=== PATIENT | male | born 1960 | race American Indian/Alaskan Native ===

== ENCOUNTER 2019-11-22 10:52 | Inpatient (IN) | payer BC ==
[2019-11-22] MEDS ORDERED: SODIUM CHLORIDE 0.9% 1000 ML 1,000 ML IV ONE (11:23)
--- NOTE | 2019-11-22 11:23 | Event Note ---
ED Screening Note ED Screening Note: 59-year-old male with past medical history of hypertension [employer] presents emergency department complaining of shortness of breath, aches, dizziness and chills and mild myalgias with malaise and finding that he had tested positive for COVID on yesterday. No hemoptysis no no no hematemesis. Plan COVID-19 evaluation This initial assessment/diagnostic orders/clinical plan/treatment(s) is/are subject to change based on patients health status, clinical progression and re- assessment by fellow clinical providers in the ED. Further treatment and workup at subsequent clinical providers discretion. Patient/guardian urged not to elope from the ED as their condition may be serious if not clinically assessed and managed. Initial orders include:
--- NOTE | 2019-11-22 12:02 | XRay Report ---
CHEST 2 VIEWS INDICATION / CLINICAL INFORMATION: sob and Covid+. Dyspnea COMPARISON: None available. FINDINGS: SUPPORT DEVICES: None. HEART / MEDIASTINUM: No significant abnormality. LUNGS / PLEURA: Linear airspace densities within the left lower lung are probably related atelectasis . There is some patchy airspace density within the right lower lung suspicious for pneumonia. Signer Name: Rodney Choi MD Signed: 11/22/2019 11:57 AM Workstation Name: [email or web address]
[2019-11-22 12:04] LABS: Basophils % (Auto) 1.1 % (0.0-1.8); Eosinophils % (Auto) 0.2 % (0.0-4.3); Lymphocytes # (Auto) 1.3 K/mm3 (1.2-5.4); Lymphocytes % (Auto) 32.1 % (13.4-35.0); Mean Corpuscular HGB Conc 36 % (32-34); Mean Corpuscular Volume 97 fl (84-94); Monocytes # (Auto) 0.5 K/mm3 (0.0-0.8); Platelet Count 211 K/mm3 (140-440); Red Blood Count 4.59 M/mm3 (3.65-5.03); Red Cell Distribution Width 12.9 % (13.2-15.2)
[2019-11-22 12:13] LABS: Hematocrit 44.5 % (35.5-45.6); Hemoglobin 16.1 gm/dl (11.8-15.2)
[2019-11-22 12:26] LABS: Albumin 4.6 g/dL (3.9-5); C-Reactive Protein 0.6 mg/dL (0.00-1.30); Calcium 9.4 mg/dL (8.4-10.2)
[2019-11-22] MEDS ORDERED: SODIUM CHLORIDE 0.9% 1000 ML IV SOLN IV ONE (12:43)
[2019-11-22] MEDS ORDERED: SODIUM CHLORIDE 0.9% 500 ML 500 ML IV ONE (12:43)
[2019-11-22] MEDS ORDERED: dexAMETHasone 20 MG/5 ML VIAL IV ONE (13:04)
--- NOTE | 2019-11-22 13:10 | Emergency Department Report ---
ED General Adult HPI - General Chief complaint: Fever Stated complaint: (+) COVID/HEART RACING PUI?: Yes Time Seen by Provider: 11/22/19 12:43 Source: patient Mode of arrival: Ambulatory Limitations: No Limitations - History of Present Illness Initial comments: Patient is a 74-rbxc-got-[place] male with past medical history of hypertension who has been ill for approximately a week. Patient had a mild cough which is nonproductive initially with some body aches. Patient now over the last 2 days has had some increased shortness of breath and dizziness and heart palpitations. Patient works for the [employer] and did test positive for COVID-19 yesterday. Patient states that his blood pressure was elevated yesterday. States his main concern is dizziness and shortness of breath with exertion. Patient has had subjective fevers throughout the week as well. - Related Data Allergies Allergy/AdvReac Type Severity Reaction Status Date / Time No Known Allergies Allergy Unverified 11/22/19 11:10 ED Review of Systems ROS: Stated complaint: (+) COVID/HEART RACING Other details as noted in HPI Comment: All other systems reviewed and negative ED Past Medical Hx - Past Medical History Previous Medical History?: Yes Hx Hypertension: Yes - Surgical History Past Surgical History?: Yes Additional Surgical History: right knee surgery - Social History Smoking Status: Never Smoker Substance Use Type: None ED Physical Exam - General Limitations: No Limitations General appearance: alert, in no apparent distress - Head Head exam: Present: atraumatic, normocephalic - Eye Eye exam: Present: normal appearance, PERRL, EOMI - ENT ENT exam: Present: normal orophraynx, mucous membranes moist - Neck Neck exam: Present: normal inspection - Respiratory Respiratory exam: Present: normal lung sounds bilaterally, chest wall tenderness. Absent: respiratory distress, wheezes, rales, rhonchi - Cardiovascular Cardiovascular Exam: Present: normal rhythm, tachycardia, normal heart sounds. Absent: systolic murmur, diastolic murmur, rubs, gallop - GI/Abdominal GI/Abdominal exam: Present: soft, normal bowel sounds. Absent: distended, tenderness, guarding, rebound - Rectal Rectal exam: Present: deferred - Extremities Exam Extremities exam: Present: normal inspection - Back Exam Back exam: Present: normal inspection - Neurological Exam Neurological exam: Present: alert, oriented X3 - Psychiatric Psychiatric exam: Present: normal affect, normal mood - Skin Skin exam: Present: warm, dry, intact, normal color. Absent: rash ED Course Vital Signs 11/22/19 11:19 Temperature 99.2 F Pulse Rate 115 H Respiratory 22 Rate Blood Pressure 143/96 O2 Sat by Pulse 96 Oximetry ED Medical Decision Making - Lab Data Result diagrams: 11/22/19 11:34 11/22/19 11:34 Lab Results 11/22/19 11/22/19 11/22/19 Range/Units 11:34 11:34 11:34 WBC (4.5-11.0) K/mm3 RBC (3.65-5.03) M/mm3 Hgb (11.8-15.2) gm/dl Hct (35.5-45.6) % MCV (84-94) fl MCH (28-32) pg MCHC (32-34) % RDW (13.2-15.2) % Plt Count (140-440) K/mm3 Lymph % (Auto) (13.4-35.0) % [place] % (Auto) (0.0-7.3) % Eos % (Auto) (0.0-4.3) % Baso % (Auto) (0.0-1.8) % Lymph # (1.2-5.4) K/mm3 [place] # (0.0-0.8) K/mm3 Eos # (0.0-0.4) K/mm3 Baso # (0.0-0.1) K/mm3 Seg Neutrophils % (40.0-70.0) % Seg Neutrophils # (1.8-7.7) K/mm3 D-Dimer 146.50 (0-234) ng/mlDDU Sodium 135 L (137-145) mmol/L Potassium 4.2 (3.6-5.0) mmol/L Chloride 94.8 L (98-107) mmol/L Carbon Dioxide 26 (22-30) mmol/L Anion Gap 18 mmol/L BUN 11 (9-20) mg/dL Creatinine 1.5 (0.8-1.5) mg/dL Estimated GFR 58 ml/min BUN/Creatinine Ratio 7 % Glucose 101 H (75-100) mg/dL Calcium 9.4 (8.4-10.2) mg/dL Ferritin 346.9 (13.0-400.0) ng/mL Total Bilirubin 1.20 (0.1-1.2) mg/dL AST 29 (5-40) units/L ALT 35 (7-56) units/L Alkaline Phosphatase 64 (35-129) units/L Lactate Dehydrogenase 220 H (91-180) units/L C-Reactive Protein 0.60 (0.00-1.30) mg/dL Total Protein 8.2 (6.3-8.2) g/dL Albumin 4.6 (3.9-5) g/dL Albumin/Globulin Ratio 1.3 % Procalcitonin (<0.15) ng/mL 11/22/19 11/22/19 Range/Units 11:34 11:34 WBC 4.1 L (4.5-11.0) K/mm3 RBC 4.59 (3.65-5.03) M/mm3 Hgb 16.1 H (11.8-15.2) gm/dl Hct 44.5 (35.5-45.6) % MCV 97 H (84-94) fl MCH 35 H (28-32) pg MCHC 36 H (32-34) % RDW 12.9 L (13.2-15.2) % Plt Count 211 (140-440) K/mm3 Lymph % (Auto) 32.1 (13.4-35.0) % [place] % (Auto) 13.0 H (0.0-7.3) % Eos % (Auto) 0.2 (0.0-4.3) % Baso % (Auto) 1.1 (0.0-1.8) % Lymph # 1.3 (1.2-5.4) K/mm3 [place] # 0.5 (0.0-0.8) K/mm3 Eos # 0.0 (0.0-0.4) K/mm3 Baso # 0.0 (0.0-0.1) K/mm3 Seg Neutrophils % 53.6 (40.0-70.0) % Seg Neutrophils # 2.2 (1.8-7.7) K/mm3 D-Dimer (0-234) ng/mlDDU Sodium (137-145) mmol/L Potassium (3.6-5.0) mmol/L Chloride (98-107) mmol/L Carbon Dioxide (22-30) mmol/L Anion Gap mmol/L BUN (9-20) mg/dL Creatinine (0.8-1.5) mg/dL Estimated GFR ml/min BUN/Creatinine Ratio % Glucose (75-100) mg/dL Calcium (8.4-10.2) mg/dL Ferritin (13.0-400.0) ng/mL Total Bilirubin (0.1-1.2) mg/dL AST (5-40) units/L ALT (7-56) units/L Alkaline Phosphatase (35-129) units/L Lactate Dehydrogenase (91-180) units/L C-Reactive Protein (0.00-1.30) mg/dL Total Protein (6.3-8.2) g/dL Albumin (3.9-5) g/dL Albumin/Globulin Ratio % Procalcitonin < 0.05 (<0.15) ng/mL - EKG Data -: EKG Interpreted by Ms EKG shows normal: sinus rhythm, axis, QRS complexes, ST-T waves Rate: normal - EKG Data Interpretation: normal EKG - Radiology Data [facility] [address] [place] [address] XRay Report Signed Patient: SHARI SOTO MR#: [id number] [birth year] : 1960 Acct:[id number] Age/Sex: 59 / M ADM Date: 11/22/19 Loc: ED Attending Dr: Ordering Physician: ROWENA HENDRICKS Date of Service: 11/22/19 Procedure(s): XR chest routine 2V Accession Number(s): [id number] cc: ROWENA HENDRICKS Fluoro Time In Minutes: CHEST 2 VIEWS INDICATION / CLINICAL INFORMATION: sob and Covid+. Dyspnea COMPARISON: None available. FINDINGS: SUPPORT DEVICES: None. HEART / MEDIASTINUM: No significant abnormality. LUNGS / PLEURA: Linear airspace densities within the left lower lung are probably related atelectasis. There is some patchy airspace density within the right lower lung suspicious for pneumonia. Signer Name: Rodney Choi MD Signed: 11/22/2019 11:57 AM Workstation Name: [email or web address] - Medical Decision Making Patient is a 59-year-old F [place] male who tested positive for COVID-19 yesterday who is presenting with worsening shortness of breath with exertion and dizziness. Patient's O2 sat is within normal limits while at rest. Patient does appear short of breath and will be started on oxygen. Patient is tachycardic and will be started on IV fluids for his dizziness. States he has had decreased appetite secondary to not being able to taste or smell. Patient meets sepsis criteria on arrival and will be started on IV fluids Rocephin and azithromycin. Patient be admitted to the hospitalist service for observation. Critical care attestation.: If time is entered above; I have spent that time in minutes in the direct care of this critically ill patient, excluding procedure time. ED Disposition Clinical Impression: COVID-19 Pneumonia Qualifiers: Pneumonia type: due to unspecified organism Lung location: lower lobe of lung Disposition: OP ADMIT IP TO THIS HOSP Is pt being admited?: Yes Does the pt Need Aspirin: No Condition: Stable Time of Disposition: 13:12
[2019-11-22] MEDS: cefTRIAXone/NS 2 GM/100 ML 2 GM/100 ML BAG IV SCH (14:20)
[2019-11-22] MEDS: AZITHROMYCIN 500 MG in SODIUM CHLORIDE 0.9% 250ML 250 ML IV SCH (14:20)
--- NOTE | 2019-11-22 21:13 | History and Physical Report ---
History of Present Illness Date of examination: 11/22/19 Date of admission: 11/22/19 13:13 Chief complaint: Fever and shortness of breath present for 3 days History of present illness: 59-year-old male with history of hypertension comes in for not feeling well for over a week. Patient has cough and body aches for the last 2 days and also increased shortness of breath and dizziness and palpitations. Patient works for [employer] and had a positive test for Covid Yesterday. Patient is concerned about his shortness of breath and dizziness. Also patient has been having subjective fevers. Exposure to coronavirus present. Past Medical History Previous Medical History?: Yes Hypertension: Yes - Surgical History Past Surgical History?: Yes Additional Surgical History: right knee surgery - Social History Smoking Status: Never Smoker Substance Use Type: None Family history Htn Review of Systems ROS: Constitutional no weight loss or weight gain no fever or chills HEENT no sore throat no post nasal drip no diplopia Neck no neck stiffness no lymph gland enlargement Chest and lungs shortness of breath and cough present for last 2 to 3 days CVS no chest pain no diaphoresis no palpitations GI no nausea no vomiting no diarrhea Genitourinary system no dysuria no flank pain Musculoskeletal system no muscle pains no joint pains [employer] no syncope no seizures Skin no rash no itching Psychiatric no depression no homicidal or suicidal tendencies Hematologic no lymphedema or bruising Endocrine no polydipsia no polyuria no cold intolerance no heat intolerance Medications and Allergies Allergies Allergy/AdvReac Type Severity Reaction Status Date / Time No Known Allergies Allergy Verified 11/22/19 15:51 Home Medications Medication Instructions Recorded Confirmed Last Taken Type Amlodipine-Benazepril 10-40 mg 40 mg PO DAILY 11/22/19 11/22/19 Unknown History Biktarvy 50-200-25 mg (Nf) 50 mg PO DAILY 11/22/19 11/22/19 Unknown History Triamterene 37.5 mg PO DAILY 11/22/19 11/22/19 Unknown History Valacyclovir 500 mg PO DAILY 11/22/19 11/22/19 Unknown History Zinc 50 mg PO DAILY 11/22/19 11/22/19 Unknown History Active Meds: Active Medications Ceftriaxone Sodium (Rocephin/Ns 2 Gm/100 Ml) 2 gm in 100 mls @ 200 mls/hr IV Q24HR [facility]; Protocol Last Admin: 11/22/19 14:20 Dose: 200 mls/hr Documented by: Azithromycin 500 mg/ Sodium (Chloride) 250 mls @ 250 mls/hr IV Q24HR JW; Protocol Last Admin: 11/22/19 14:20 Dose: 250 mls/hr Documented by: Exam - Constitutional Vitals: Temp Pulse Resp BP Pulse Ox 98.1 F 115 H 22 160/103 94 11/22/19 20:35 11/22/19 11:19 11/22/19 11:19 11/22/19 18:30 11/22/19 18:16 General appearance: Present: no acute distress, well-nourished - EENT Eyes: Present: PERRL ENT: hearing intact, clear oral mucosa - Neck Neck: Present: supple, normal ROM - Respiratory Respiratory effort: normal Respiratory: bilateral: CTA, rhonchi (Scattered) - Cardiovascular Heart rate: 78 Rhythm: regular Heart Sounds: Present: S1 & S2. Absent: rub, click - Extremities Extremities: no ischemia, pulses intact, pulses symmetrical, No edema Peripheral Pulses: within normal limits - Abdominal General gastrointestinal: Present: soft, non-tender, non-distended, normal bowel sounds Male genitourinary: Present: normal - Integumentary Integumentary: Present: clear, warm, dry - Musculoskeletal Musculoskeletal: gait normal, strength equal bilaterally - Psychiatric Psychiatric: appropriate mood/affect, intact judgment & insight - Neurologic Neurologic: CNII-XII intact, moves all extremities - Allied Health Allied health notes reviewed: nursing, case management Results - Labs CBC & Chem 7: 11/22/19 11:34 11/22/19 11:34 Labs: Laboratory Last Values WBC 4.1 K/mm3 (4.5-11.0) L 11/22/19 11:34 RBC 4.59 M/mm3 (3.65-5.03) 11/22/19 11:34 Hgb 16.1 gm/dl (11.8-15.2) H 11/22/19 11:34 Hct 44.5 % (35.5-45.6) 11/22/19 11:34 MCV 97 fl (84-94) H 11/22/19 11:34 MCH 35 pg (28-32) H 11/22/19 11:34 MCHC 36 % (32-34) H 11/22/19 11:34 RDW 12.9 % (13.2-15.2) L 11/22/19 11:34 Plt Count 211 K/mm3 (140-440) 11/22/19 11:34 Lymph % (Auto) 32.1 % (13.4-35.0) 11/22/19 11:34 [place] % (Auto) 13.0 % (0.0-7.3) H 11/22/19 11:34 Eos % (Auto) 0.2 % (0.0-4.3) 11/22/19 11:34 Baso % (Auto) 1.1 % (0.0-1.8) 11/22/19 11:34 Lymph # 1.3 K/mm3 (1.2-5.4) 11/22/19 11:34 [place] # 0.5 K/mm3 (0.0-0.8) 11/22/19 11:34 Eos # 0.0 K/mm3 (0.0-0.4) 11/22/19 11:34 Baso # 0.0 K/mm3 (0.0-0.1) 11/22/19 11:34 Seg Neutrophils % 53.6 % (40.0-70.0) 11/22/19 11:34 Seg Neutrophils # 2.2 K/mm3 (1.8-7.7) 11/22/19 11:34 D-Dimer 146.50 ng/mlDDU (0-234) 11/22/19 11:34 Sodium 135 mmol/L (137-145) L 11/22/19 11:34 Potassium 4.2 mmol/L (3.6-5.0) 11/22/19 11:34 Chloride 94.8 mmol/L (98-107) L 11/22/19 11:34 Carbon Dioxide 26 mmol/L (22-30) 11/22/19 11:34 Anion Gap 18 mmol/L 11/22/19 11:34 BUN 11 mg/dL (9-20) 11/22/19 11:34 Creatinine 1.5 mg/dL (0.8-1.5) 11/22/19 11:34 Estimated GFR 58 ml/min 11/22/19 11:34 BUN/Creatinine Ratio 7 % 11/22/19 11:34 Glucose 101 mg/dL (75-100) H 11/22/19 11:34 Lactic Acid 1.30 mmol/L (0.7-2.0) 11/22/19 17:39 Calcium 9.4 mg/dL (8.4-10.2) 11/22/19 11:34 Ferritin 346.9 ng/mL (13.0-400.0) 11/22/19 11:34 Total Bilirubin 1.20 mg/dL (0.1-1.2) 11/22/19 11:34 AST 29 units/L (5-40) 11/22/19 11:34 ALT 35 units/L (7-56) 11/22/19 11:34 Alkaline Phosphatase 64 units/L (35-129) 11/22/19 11:34 Lactate Dehydrogenase 220 units/L (91-180) H 11/22/19 11:34 C-Reactive Protein 0.60 mg/dL (0.00-1.30) 11/22/19 11:34 Total Protein 8.2 g/dL (6.3-8.2) 11/22/19 11:34 Albumin 4.6 g/dL (3.9-5) 11/22/19 11:34 Albumin/Globulin Ratio 1.3 % 11/22/19 11:34 Procalcitonin < 0.05 ng/mL (<0.15) 11/22/19 11:34 Short CBC 11/22/19 Range/Units 11:34 WBC 4.1 L (4.5-11.0) K/mm3 Hgb 16.1 H (11.8-15.2) gm/dl Hct 44.5 (35.5-45.6) % Plt Count 211 (140-440) K/mm3 BMP 11/22/19 11:34 Sodium 135 L Potassium 4.2 Chloride 94.8 L Carbon Dioxide 26 BUN 11 Creatinine 1.5 Glucose 101 H Calcium 9.4 Liver Function 11/22/19 Range/Units 11:34 Total Bilirubin 1.20 (0.1-1.2) mg/dL AST 29 (5-40) units/L ALT 35 (7-56) units/L Alkaline Phosphatase 64 (35-129) units/L Albumin 4.6 (3.9-5) g/dL Microbiology: Microbiology 11/22/19 13:19 Peripheral/Venous Blood Culture - Preliminary Culture in Progress 11/22/19 13:19 Peripheral/Venous Blood Culture - Preliminary Culture in Progress - Imaging and Cardiology Chest x-ray: report reviewed Imaging and Cardiology: CXR LUNGS / PLEURA: Linear airspace densities within the left lower lung are probably related atelectasis. There is some patchy airspace density within the right lower lung suspicious for pneumonia. Assessment and Plan Advance Directives: Yes - Patient Problems (1) Pneumonia Current Visit: Yes Status: Acute Qualifiers: Pneumonia type: due to unspecified organism Laterality: left Lung location: lower lobe of lung Qualified Code(s): J18.9 - Pneumonia, unspecified organism Plan to address problem: Treat as community-acquired pneumonia Patient initiated on IV Zithromax and IV Rocephin ID consult requested Patient isolated (2) COVID-19 Current Visit: Yes Status: Acute Plan to address problem: Covid test ordered again for reconfirmation and official result ID consult requested Code markers are slightly high (3) Hypertension Current Visit: Yes Status: Chronic Qualifiers: Hypertension type: essential hypertension Qualified Code(s): I10 - Essential (primary) hypertension Plan to address problem: Continue antihypertensives (4) Hyponatremia Current Visit: Yes Status: Acute Plan to address problem: Mild Should correct with IV fluids (5) DVT prophylaxis Current Visit: Yes Status: Acute Plan to address problem: On Lovenox and GI prophylaxis
[2019-11-22] MEDS ORDERED: SODIUM CHLORIDE 0.9% 1000 ML 1,000 ML IV SCH (21:15)
[2019-11-22] MEDS ORDERED: ZINC 50 MG PO SCH (21:15)
[2019-11-22] MEDS ORDERED: ONDANSETRON 4 MG/2 ML INJ IV PRN (21:15)
[2019-11-22] MEDS ORDERED: TRIAMTERENE 37.5 MG PO SCH (21:15)
[2019-11-22] MEDS ORDERED: AMLODIPINE BENAZEPRIL PO SCH (21:15)
[2019-11-22] MEDS ORDERED: ACETAMINOPHEN 325 MG TAB PO PRN (21:15)
[2019-11-22] MEDS ORDERED: VALACYCLOVIR 500 MG PO SCH (21:15)
[2019-11-22] MEDS ORDERED: HYDROmorphone 1 MG/1 ML INJ IV PRN (21:16)
[2019-11-22] MEDS ORDERED: oxyCODONE /ACETAMINOPHEN 5-325MG TAB PO PRN (21:16)
[2019-11-22] MEDS ORDERED: METOCLOPRAMIDE 10 MG/2 ML INJ IV PRN (21:26)
[2019-11-22] MEDS ORDERED: IPRATROPIUM/ALBUTEROL SULFATE 3 ML AMPUL.NEB IH PRN (21:38)
[2019-11-22] MEDS ORDERED: ALBUTEROL 2.5 MG/3 ML NEBU IH PRN (22:48)
[2019-11-22] MEDS: ENOXAPARIN 40 MG/0.4 ML INJ SUB-Q SCH (23:15)
[2019-11-22] MEDS: LISINOPRIL 40 MG TAB PO SCH (23:15)
[2019-11-22] MEDS: FAMOTIDINE 20 MG/2 ML INJ IV SCH (23:17)
[2019-11-23] MEDS: amLODIPine 10 MG TAB PO SCH ×2 (00:01→10:06)
[2019-11-23] MEDS: TRIAMTER/HCTZ 37.5-25 MG TAB PO SCH ×2 (00:04→10:04)
[2019-11-23 07:27] LABS: Hematocrit 38.6 % (35.5-45.6); Hemoglobin 13.6 gm/dl (11.8-15.2); Mean Corpuscular HGB Conc 35 % (32-34); Mean Corpuscular Volume 95 fl (84-94); Platelet Count 181 K/mm3 (140-440); Red Blood Count 4.04 M/mm3 (3.65-5.03); Red Cell Distribution Width 12.5 % (13.2-15.2)
[2019-11-23 07:50] LABS: Alanine Aminotransferase 26 units/L (7-56); Albumin 3.9 g/dL (3.9-5); BUN/Creatinine Ratio 13; Blood Urea Nitrogen 14 mg/dL (9-20); Calcium 8.4 mg/dL (8.4-10.2); Hemolysis Index 5
--- NOTE | 2019-11-23 09:13 | Progress Note ---
Assessment and Plan Assessment and plan: Sepsis. Patient meets criteria given the tachycardia, leukopenia and diagnosis of pneumonia. Will continue sepsis pathway. COVID-19 pneumonia. Patient reportedly tested positive prior to admission. I nflammatory markers are not elevated with d-dimer 146, ferritin 346, CRP 0.6 and LDH 220. However, patient with desaturation in the 80s. Check exercise pulse oximetry. ID consultation pending. Acute hypoxic respiratory failure. Etiology secondary to above. Continue O2 and BiPAP as clinically indicated. Leukopenia. Etiology secondary to COVID-19. Follow-up CBC. Hypertension. Continue home antihypertensive medications. History Interval history: No new issues overnight. Hospitalist Physical - Constitutional Vitals: Temp Pulse Resp BP Pulse Ox 98.0 F 88 18 133/89 88 11/22/19 23:14 11/23/19 00:01 11/22/19 23:14 11/23/19 00:01 11/23/19 04:11 General appearance: Present: no acute distress, well-nourished - EENT Eyes: Present: PERRL, EOM intact ENT: hearing intact, clear oral mucosa, dentition normal - Neck Neck: Present: supple, normal ROM - Respiratory Respiratory effort: normal Respiratory: bilateral: CTA - Cardiovascular Rhythm: regular Heart Sounds: Present: S1 & S2. Absent: gallop, rub - Extremities Extremities: no ischemia, No edema, Full ROM - Abdominal General gastrointestinal: soft, non-tender, non-distended, normal bowel sounds - Integumentary Integumentary: Present: clear, warm, dry - Neurologic Neurologic: CNII-XII intact, moves all extremities Results - Labs CBC & Chem 7: 11/23/19 06:12 11/23/19 06:12 Labs: Laboratory Last Values WBC 1.9 K/mm3 (4.5-11.0) L* 11/23/19 06:12 RBC 4.04 M/mm3 (3.65-5.03) 11/23/19 06:12 Hgb 13.6 gm/dl (11.8-15.2) 11/23/19 06:12 Hct 38.6 % (35.5-45.6) 11/23/19 06:12 MCV 95 fl (84-94) H 11/23/19 06:12 MCH 34 pg (28-32) H 11/23/19 06:12 MCHC 35 % (32-34) H 11/23/19 06:12 RDW 12.5 % (13.2-15.2) L 11/23/19 06:12 Plt Count 181 K/mm3 (140-440) 11/23/19 06:12 Lymph % (Auto) 32.1 % (13.4-35.0) 11/22/19 11:34 [place] % (Auto) 13.0 % (0.0-7.3) H 11/22/19 11:34 Eos % (Auto) 0.2 % (0.0-4.3) 11/22/19 11:34 Baso % (Auto) 1.1 % (0.0-1.8) 11/22/19 11:34 Lymph # 1.3 K/mm3 (1.2-5.4) 11/22/19 11:34 [place] # 0.5 K/mm3 (0.0-0.8) 11/22/19 11:34 Eos # 0.0 K/mm3 (0.0-0.4) 11/22/19 11:34 Baso # 0.0 K/mm3 (0.0-0.1) 11/22/19 11:34 Seg Neutrophils % 53.6 % (40.0-70.0) 11/22/19 11:34 Seg Neutrophils # 2.2 K/mm3 (1.8-7.7) 11/22/19 11:34 D-Dimer 146.50 ng/mlDDU (0-234) 11/22/19 11:34 Sodium 139 mmol/L (137-145) 11/23/19 06:12 Potassium 3.9 mmol/L (3.6-5.0) 11/23/19 06:12 Chloride 102.6 mmol/L (98-107) 11/23/19 06:12 Carbon Dioxide 23 mmol/L (22-30) 11/23/19 06:12 Anion Gap 17 mmol/L 11/23/19 06:12 BUN 14 mg/dL (9-20) 11/23/19 06:12 Creatinine 1.1 mg/dL (0.8-1.5) 11/23/19 06:12 Estimated GFR > 60 ml/min 11/23/19 06:12 BUN/Creatinine Ratio 13 % 11/23/19 06:12 Glucose 111 mg/dL (75-100) H 11/23/19 06:12 Hemoglobin A1c 4.7 % (4-6) 11/23/19 06:12 Lactic Acid 1.30 mmol/L (0.7-2.0) 11/22/19 17:39 Calcium 8.4 mg/dL (8.4-10.2) 11/23/19 06:12 Ferritin 346.9 ng/mL (13.0-400.0) 11/22/19 11:34 Total Bilirubin 0.90 mg/dL (0.1-1.2) 11/23/19 06:12 AST 17 units/L (5-40) 11/23/19 06:12 ALT 26 units/L (7-56) 11/23/19 06:12 Alkaline Phosphatase 51 units/L (35-129) 11/23/19 06:12 Lactate Dehydrogenase 220 units/L (91-180) H 11/22/19 11:34 C-Reactive Protein 0.60 mg/dL (0.00-1.30) 11/22/19 11:34 Total Protein 6.6 g/dL (6.3-8.2) 11/23/19 06:12 Albumin 3.9 g/dL (3.9-5) 11/23/19 06:12 Albumin/Globulin Ratio 1.4 % 11/23/19 06:12 Procalcitonin < 0.05 ng/mL (<0.15) 11/22/19 11:34 Microbiology: Microbiology 11/22/19 13:19 Peripheral/Venous Blood Culture - Preliminary Culture in Progress 11/22/19 13:19 Peripheral/Venous Blood Culture - Preliminary Culture in Progress [place]co/IV: Voiding Method Toilet Active Medications - Current Medications Current Medications: Generic Name Dose Route Start Last Admin Trade Name Freq PRN Reason Stop Dose Admin Acetaminophen 650 mg 11/22/19 21:15 Tylenol PO Q4H PRN Pain MILD(1-3)/Fever >100.5/OLMSTEAD Albuterol 2.5 mg 11/22/19 22:48 Proventil IH Q3HRT PRN Shortness Of Breath Amlodipine Besylate 10 mg 11/22/19 22:00 11/23/19 00:01 Amlodipine PO 10 mg DAILY JW Administration Enoxaparin Sodium 40 mg 11/22/19 22:00 11/22/19 23:15 Enoxaparin SUB-Q 40 mg QDAY@2200 JW Administration Famotidine 20 mg 11/22/19 22:00 11/22/19 23:17 Pepcid IV 20 mg BID JW Administration Hydromorphone HCl 0.5 mg 11/22/19 21:16 Dilaudid IV Q3H PRN Pain , Severe (7-10) Ceftriaxone Sodium 2 gm in 100 mls @ 200 mls/hr 11/22/19 13:30 11/22/19 14:20 Rocephin/Ns 2 Gm/100 Ml IV 200 mls/hr Q24HR JW Administration Protocol Azithromycin 500 mg/ Sodium 250 mls @ 250 mls/hr 11/22/19 14:30 11/22/19 14:20 Chloride IV 11/28/19 14:29 250 mls/hr Q24HR JW Administration Protocol Sodium Chloride 1,000 mls @ 75 mls/hr 11/22/19 21:15 11/22/19 23:14 Nacl 0.9% 1000 Ml IV 11/23/19 11:00 75 mls/hr DIRECT JW Administration Lisinopril 40 mg 11/22/19 22:00 11/22/19 23:15 Zestril PO 40 mg QDAY JW Administration Metoclopramide HCl 10 mg 11/22/19 21:26 Reglan IV Q6H PRN Nausea And Vomiting Miscellaneous Medication 50 mg 11/23/19 10:00 Biktarvy 50-200-25 Mg (Nf) PO DAILY [facility] Ondansetron HCl 4 mg 11/22/19 21:15 Zofran IV Q8H PRN Nausea And Vomiting Oxycodone/Acetaminophen 1 tab 11/22/19 21:16 11/23/19 00:45 Percocet 5/325 PO 1 tab Q6H PRN Administration Pain, Moderate (4-6) Sodium Chloride 10 ml 11/22/19 22:00 11/22/19 23:17 Sodium Chloride Flush Syringe 10 Ml IV 10 ml BID JW Administration Sodium Chloride 10 ml 11/22/19 21:15 Sodium Chloride Flush Syringe 10 Ml IV PRN PRN LINE FLUSH Triamterene/HCTZ 1 each 11/22/19 22:00 11/23/19 00:04 Maxzide-25 PO 1 each QAM JW Administration Valacyclovir HCl 500 mg 11/23/19 10:00 Valtrex PO DAILY JW Zinc Sulfate 220 mg 11/23/19 10:00 Zinc Sulfate PO DAILY JW
[2019-11-23] MEDS ORDERED: cefTRIAXone/NS 2 GM/100 ML 2 GM/100 ML BAG IV SCH (10:00)
[2019-11-23] MEDS ORDERED: BIKTARVY PO SCH (10:00)
[2019-11-23] MEDS: AZITHROMYCIN 500 MG in SODIUM CHLORIDE 0.9% 250ML 250 ML IV SCH (10:03)
[2019-11-23] MEDS: cefTRIAXone/NS 2 GM/100 ML 2 GM/100 ML BAG IV SCH (10:03)
[2019-11-23] MEDS: LISINOPRIL 40 MG TAB PO SCH (10:05)
[2019-11-23] MEDS: valACYclovir 500 MG TAB PO SCH (10:06)
[2019-11-23] MEDS: ZINC SULFATE 220 MG CAP PO SCH (10:06)
[2019-11-23] MEDS: FAMOTIDINE 20 MG/2 ML INJ IV SCH ×2 (10:06→21:06)
[2019-11-23 10:59] LABS: Basophils % (Manual) 0 % (0.0-1.8); Eosinophils % (Manual) 0 % (0.0-4.3); Giant Platelets Few; Platelet Estimate Consistent w Auto; RBC Morphology Normal; Total Cells Counted 100
[2019-11-23] MEDS: ENOXAPARIN 40 MG/0.4 ML INJ SUB-Q SCH (21:06)
[2019-11-23] MEDS ORDERED: AZITHROMYCIN 500 MG in SODIUM CHLORIDE 0.9% 250ML 250 ML IV SCH (22:00)
[2019-11-23] MEDS: MELATONIN 5 MG TAB PO PRN (23:04)
[2019-11-24 04:40] LABS: Basophils % (Auto) 0.4 % (0.0-1.8); Eosinophils % (Auto) 0.2 % (0.0-4.3); Hematocrit 40.5 % (35.5-45.6); Hemoglobin 14.2 gm/dl (11.8-15.2); Lymphocytes # (Auto) 1.2 K/mm3 (1.2-5.4); Lymphocytes % (Auto) 26.4 % (13.4-35.0); Mean Corpuscular HGB Conc 35 % (32-34); Mean Corpuscular Volume 96 fl (84-94); Monocytes # (Auto) 0.5 K/mm3 (0.0-0.8); Monocytes % (Auto) 10.6 % (0.0-7.3); Platelet Count 181 K/mm3 (140-440); Red Blood Count 4.23 M/mm3 (3.65-5.03); Red Cell Distribution Width 12.6 % (13.2-15.2)
[2019-11-24 05:22] LABS: Blood Urea Nitrogen 14 mg/dL (9-20)
[2019-11-24 05:24] LABS: BUN/Creatinine Ratio 12; Calcium 8.6 mg/dL (8.4-10.2); Hemolysis Index 80
[2019-11-24] MEDS: LISINOPRIL 40 MG TAB PO SCH (09:24)
[2019-11-24] MEDS: ZINC SULFATE 220 MG CAP PO SCH (09:24)
[2019-11-24] MEDS: TRIAMTER/HCTZ 37.5-25 MG TAB PO SCH (09:24)
[2019-11-24] MEDS: amLODIPine 10 MG TAB PO SCH (09:25)
[2019-11-24] MEDS: valACYclovir 500 MG TAB PO SCH (09:25)
[2019-11-24] MEDS: FAMOTIDINE 20 MG/2 ML INJ IV SCH ×2 (09:25→21:28)
[2019-11-24] MEDS ORDERED: AZITHROMYCIN 250 MG TAB PO SCH (10:00)
--- NOTE | 2019-11-24 10:31 | Progress Note ---
Assessment and Plan Assessment and plan: Sepsis. Patient meets criteria given the tachycardia, leukopenia and diagnosis of pneumonia. Will continue sepsis pathway. COVID-19 pneumonia. Patient reportedly tested positive prior to admission. I nflammatory markers are not elevated with d-dimer 146, ferritin 346, CRP 0.6 and LDH 220. However, patient with desaturation in the 80s. Check exercise pulse oximetry. ID consultation pending. Acute hypoxic respiratory failure. Etiology secondary to above. Continue O2 and BiPAP as clinically indicated. Leukopenia. Etiology secondary to COVID-19. Follow-up CBC. Hypertension. Continue home antihypertensive medications. 11/24/2019. Inflammatory markers were not elevated on admission. We will continue to trend inflammatory markers. ID consultation. Patient currently experiencing no hypoxia. History Interval history: No new issues overnight. Hospitalist Physical - Constitutional Vitals: Temp Pulse Resp BP Pulse Ox 98.4 F 95 H 18 134/84 93 11/24/19 05:07 11/24/19 05:07 11/24/19 05:07 11/24/19 05:07 11/24/19 05:07 General appearance: Present: no acute distress, well-nourished - EENT Eyes: Present: PERRL, EOM intact ENT: hearing intact, clear oral mucosa, dentition normal - Neck Neck: Present: supple, normal ROM - Respiratory Respiratory effort: normal Respiratory: bilateral: CTA - Cardiovascular Rhythm: regular Heart Sounds: Present: S1 & S2. Absent: gallop, rub - Extremities Extremities: no ischemia, No edema, Full ROM - Abdominal General gastrointestinal: soft, non-tender, non-distended, normal bowel sounds - Integumentary Integumentary: Present: clear, warm, dry - Neurologic Neurologic: CNII-XII intact, moves all extremities Results - Labs CBC & Chem 7: 11/24/19 04:22 11/24/19 04:22 Labs: Laboratory Last Values WBC 4.7 K/mm3 (4.5-11.0) 11/24/19 04:22 RBC 4.23 M/mm3 (3.65-5.03) 11/24/19 04:22 Hgb 14.2 gm/dl (11.8-15.2) 11/24/19 04:22 Hct 40.5 % (35.5-45.6) 11/24/19 04:22 MCV 96 fl (84-94) H 11/24/19 04:22 MCH 33 pg (28-32) H 11/24/19 04:22 MCHC 35 % (32-34) H 11/24/19 04:22 RDW 12.6 % (13.2-15.2) L 11/24/19 04:22 Plt Count 181 K/mm3 (140-440) 11/24/19 04:22 Lymph % (Auto) 26.4 % (13.4-35.0) 11/24/19 04:22 [place] % (Auto) 10.6 % (0.0-7.3) H 11/24/19 04:22 Eos % (Auto) 0.2 % (0.0-4.3) 11/24/19 04:22 Baso % (Auto) 0.4 % (0.0-1.8) 11/24/19 04:22 Lymph # 1.2 K/mm3 (1.2-5.4) 11/24/19 04:22 [place] # 0.5 K/mm3 (0.0-0.8) 11/24/19 04:22 Eos # 0.0 K/mm3 (0.0-0.4) 11/24/19 04:22 Baso # 0.0 K/mm3 (0.0-0.1) 11/24/19 04:22 Add Manual Diff Complete 11/23/19 06:12 Total Counted 100 11/23/19 06:12 Seg Neutrophils % 62.4 % (40.0-70.0) 11/24/19 04:22 Seg Neuts % (Manual) 52.0 % (40.0-70.0) 11/23/19 06:12 Band Neutrophils % 0 % 11/23/19 06:12 Lymphocytes % (Manual) 27.0 % (13.4-35.0) 11/23/19 06:12 Reactive Lymphs % (Man) 2.0 % 11/23/19 06:12 Monocytes % (Manual) 19.0 % (0.0-7.3) H 11/23/19 06:12 Eosinophils % (Manual) 0 % (0.0-4.3) 11/23/19 06:12 Basophils % (Manual) 0 % (0.0-1.8) 11/23/19 06:12 Metamyelocytes % 0 % 11/23/19 06:12 Myelocytes % 0 % 11/23/19 06:12 Promyelocytes % 0 % 11/23/19 06:12 Blast Cells % 0 % 11/23/19 06:12 Nucleated RBC % Not Reportable 11/23/19 06:12 Seg Neutrophils # 2.9 K/mm3 (1.8-7.7) 11/24/19 04:22 Seg Neutrophils # Man 1.0 K/mm3 (1.8-7.7) L 11/23/19 06:12 Band Neutrophils # 0.0 K/mm3 11/23/19 06:12 Lymphocytes # (Manual) 0.5 K/mm3 (1.2-5.4) L 11/23/19 06:12 Abs React Lymphs (Man) 0.0 K/mm3 11/23/19 06:12 Monocytes # (Manual) 0.4 K/mm3 (0.0-0.8) 11/23/19 06:12 Eosinophils # (Manual) 0.0 K/mm3 (0.0-0.4) 11/23/19 06:12 Basophils # (Manual) 0.0 K/mm3 (0.0-0.1) 11/23/19 06:12 Metamyelocytes # 0.0 K/mm3 11/23/19 06:12 Myelocytes # 0.0 K/mm3 11/23/19 06:12 Promyelocytes # 0.0 K/mm3 11/23/19 06:12 Blast Cells # 0.0 K/mm3 11/23/19 06:12 WBC Morphology Not Reportable 11/23/19 06:12 WBC Morphology TNR 11/23/19 06:12 Hypersegmented Neuts Not Reportable 11/23/19 06:12 Hyposegmented Neuts Not Reportable 11/23/19 06:12 Hypogranular Neuts Not Reportable 11/23/19 06:12 Smudge Cells Not Reportable 11/23/19 06:12 Toxic Granulation Not Reportable 11/23/19 06:12 Toxic Vacuolation Not Reportable 11/23/19 06:12 Dohle Bodies Not Reportable 11/23/19 06:12 Pelger-Huet Anomaly Not Reportable 11/23/19 06:12 Jerrod Rods Not Reportable 11/23/19 06:12 Platelet Estimate Consistent w auto 11/23/19 06:12 Clumped Platelets Not Reportable 11/23/19 06:12 Plt Clumps, EDTA Not Reportable 11/23/19 06:12 Large Platelets Not Reportable 11/23/19 06:12 Giant Platelets Few 11/23/19 06:12 Platelet Satelliting Not Reportable 11/23/19 06:12 Plt Morphology Comment Not Reportable 11/23/19 06:12 RBC Morphology Normal 11/23/19 06:12 Dimorphic RBCs Not Reportable 11/23/19 06:12 Polychromasia Not Reportable 11/23/19 06:12 Hypochromasia Not Reportable 11/23/19 06:12 Poikilocytosis Not Reportable 11/23/19 06:12 Anisocytosis Not Reportable 11/23/19 06:12 Microcytosis Not Reportable 11/23/19 06:12 Macrocytosis Not Reportable 11/23/19 06:12 Spherocytes Not Reportable 11/23/19 06:12 Pappenheimer Bodies Not Reportable 11/23/19 06:12 Sickle Cells Not Reportable 11/23/19 06:12 Target Cells Not Reportable 11/23/19 06:12 Tear Drop Cells Not Reportable 11/23/19 06:12 Ovalocytes Not Reportable 11/23/19 06:12 Helmet Cells Not Reportable 11/23/19 06:12 [place] Bodies Not Reportable 11/23/19 06:12 Luke Rings Not Reportable 11/23/19 06:12 [place] Cells Not Reportable 11/23/19 06:12 Bite Cells Not Reportable 11/23/19 06:12 Crenated Cell Not Reportable 11/23/19 06:12 Elliptocytes Not Reportable 11/23/19 06:12 Acanthocytes (Spur) Not Reportable 11/23/19 06:12 Rouleaux Not Reportable 11/23/19 06:12 Hemoglobin C Crystals Not Reportable 11/23/19 06:12 Schistocytes Not Reportable 11/23/19 06:12 Malaria parasites Not Reportable 11/23/19 06:12 Alvaro Bodies Not Reportable 11/23/19 06:12 Hem Pathologist Commnt No 11/23/19 06:12 D-Dimer 146.50 ng/mlDDU (0-234) 11/22/19 11:34 Sodium 138 mmol/L (137-145) 11/24/19 04:22 Potassium 3.9 mmol/L (3.6-5.0) 11/24/19 04:22 Chloride 100.5 mmol/L (98-107) 11/24/19 04:22 Carbon Dioxide 25 mmol/L (22-30) 11/24/19 04:22 Anion Gap 16 mmol/L 11/24/19 04:22 BUN 14 mg/dL (9-20) 11/24/19 04:22 Creatinine 1.2 mg/dL (0.8-1.5) 11/24/19 04:22 Estimated GFR > 60 ml/min 11/24/19 04:22 BUN/Creatinine Ratio 12 % 11/24/19 04:22 Glucose 96 mg/dL (75-100) 11/24/19 04:22 Hemoglobin A1c 4.7 % (4-6) 11/23/19 06:12 Lactic Acid 1.30 mmol/L (0.7-2.0) 11/22/19 17:39 Calcium 8.6 mg/dL (8.4-10.2) 11/24/19 04:22 Ferritin 346.9 ng/mL (13.0-400.0) 11/22/19 11:34 Total Bilirubin 0.90 mg/dL (0.1-1.2) 11/23/19 06:12 AST 17 units/L (5-40) 11/23/19 06:12 ALT 26 units/L (7-56) 11/23/19 06:12 Alkaline Phosphatase 51 units/L (35-129) 11/23/19 06:12 Lactate Dehydrogenase 220 units/L (91-180) H 11/22/19 11:34 C-Reactive Protein 0.60 mg/dL (0.00-1.30) 11/22/19 11:34 Total Protein 6.6 g/dL (6.3-8.2) 11/23/19 06:12 Albumin 3.9 g/dL (3.9-5) 11/23/19 06:12 Albumin/Globulin Ratio 1.4 % 11/23/19 06:12 Procalcitonin < 0.05 ng/mL (<0.15) 11/22/19 11:34 Coronavirus (PCR) Positive (Negative) A 11/23/19 Unknown Microbiology: Microbiology 11/22/19 13:19 Peripheral/Venous Blood Culture - Preliminary NO GROWTH AFTER 24 HOURS 11/22/19 13:19 Peripheral/Venous Blood Culture - Preliminary NO GROWTH AFTER 24 HOURS Pacheco/IV: Voiding Method Toilet IV Catheter Type [Right Hand] INT / Saline Lock Active Medications - Current Medications Current Medications: Generic Name Dose Route Start Last Admin Trade Name Freq PRN Reason Stop Dose Admin Acetaminophen 650 mg 11/22/19 21:15 Tylenol PO Q4H PRN Pain MILD(1-3)/Fever >100.5/OLMSTEAD Albuterol 2.5 mg 11/22/19 22:48 Proventil IH Q3HRT PRN Shortness Of Breath Amlodipine Besylate 10 mg 11/22/19 22:00 11/24/19 09:25 Amlodipine PO 10 mg DAILY JW Administration Azithromycin 500 mg 11/24/19 10:00 11/24/19 09:24 Zithromax PO 11/28/19 14:29 500 mg QDAY JW Administration Enoxaparin Sodium 40 mg 11/22/19 22:00 11/23/19 21:06 Enoxaparin SUB-Q 40 mg QDAY@2200 JW Administration Famotidine 20 mg 11/22/19 22:00 11/24/19 09:25 Pepcid IV 20 mg BID JW Administration Hydromorphone HCl 0.5 mg 11/22/19 21:16 Dilaudid IV Q3H PRN Pain , Severe (7-10) Ceftriaxone Sodium 2 gm in 100 mls @ 200 mls/hr 11/22/19 13:30 11/23/19 10:03 Rocephin/Ns 2 Gm/100 Ml IV 200 mls/hr Q24HR JW Administration Protocol Lisinopril 40 mg 11/22/19 22:00 11/24/19 09:24 Zestril PO 40 mg QDAY JW Administration Melatonin 5 mg 11/23/19 21:25 11/23/19 23:04 Melatonin PO 5 mg QHS PRN Administration Sleep Metoclopramide HCl 10 mg 11/22/19 21:26 Reglan IV Q6H PRN Nausea And Vomiting Miscellaneous Medication 50 mg 11/23/19 10:00 Biktarvy 50-200-25 Mg (Nf) PO DAILY JW Ondansetron HCl 4 mg 11/22/19 21:15 Zofran IV Q8H PRN Nausea And Vomiting Oxycodone/Acetaminophen 1 tab 11/22/19 21:16 11/23/19 00:45 Percocet 5/325 PO 1 tab Q6H PRN Administration Pain, Moderate (4-6) Sodium Chloride 10 ml 11/22/19 22:00 11/24/19 09:25 Sodium Chloride Flush Syringe 10 Ml IV 10 ml BID JW Administration Sodium Chloride 10 ml 11/22/19 21:15 Sodium Chloride Flush Syringe 10 Ml IV PRN PRN LINE FLUSH Triamterene/HCTZ 1 each 11/22/19 22:00 11/24/19 09:24 Maxzide-25 PO 1 each QAM JW Administration Valacyclovir HCl 500 mg 11/23/19 10:00 11/24/19 09:25 Valtrex PO 500 mg DAILY JW Administration Zinc Sulfate 220 mg 11/23/19 10:00 11/24/19 09:24 Zinc Sulfate PO 220 mg DAILY JW Administration
[2019-11-24] MEDS: cefTRIAXone/NS 2 GM/100 ML 2 GM/100 ML BAG IV SCH (11:00)
--- NOTE | 2019-11-24 15:23 | Consultation ---
History of Present Illness - Reason for Consult Consult date: 11/24/19 covid Requesting physician: OMID ELIAS - History of Present Illness 59 y/o male with history of hypertension, obesity admitted with 3-day history of generalized weakness, dizziness, cough and body aches associated with shortness of breath. On arrival, temperature 99.2, HR 115, RR 22, O2 96%, BP 143/96. Initial WBC 4.1, went down to 1.9. D-dimer 146. Ferritin 346. LDH 220. CRP 0.6. Creatinine 1.5. COVID-19 test positive. Procalcitonin less than 0.05. Admission sats went down to 83%. Chest x-ray shows patchy airspace disease in the right lower lobe. Review of Systems: positive in bold print General: + fever, +chills, +malaise Cutaneous: rash, pruritus Head: headaches or injury Eyes: changes in vision, eye pain, double vision Ears: ear pain, ear discharge, ringing or hearing loss Nose: nose bleeding, stuffiness Mouth & throat: bleeding gums, horseness, no dental problems, or swollen glands Neck: no pain, node enlargement/lumps, tyroid enlargement or tenderness Respiratory: +SOB, +cough, +GOMEZ, wheezing, sputum, hemoptysis, pleuritic chest pain Cardiovascular: chest pain, leg edema, cyanosis, GOMEZ, orthopnea Musculoskeletal: edema Gastrointestinal: nausea, vomiting, hematemesis, diarrhea, constipation, melena, bright red blood in stools, fecal incontinence, jaundice Genitourinary/Reproductive: frequent urination, dysuria, hematuria, incontinence Neurogical: seizures, headaches, weakness, paresthesias, loss of speech or vision; memory loss, vertigo, tremors, numbness Psychiatric: stable mood; excessive anxiety, sadness or moodiness Medications and Allergies Allergies Allergy/AdvReac Type Severity Reaction Status Date / Time No Known Allergies Allergy Verified 11/22/19 15:51 Home Medications Medication Instructions Recorded Confirmed Last Taken Type Amlodipine-Benazepril 10-40 mg 40 mg PO DAILY 11/22/19 11/22/19 Unknown History Biktarvy 50-200-25 mg (Nf) 50 mg PO DAILY 11/22/19 11/22/19 Unknown History Triamterene 37.5 mg PO DAILY 11/22/19 11/22/19 Unknown History Valacyclovir 500 mg PO DAILY 11/22/19 11/22/19 Unknown History Zinc 50 mg PO DAILY 11/22/19 11/22/19 Unknown History Active Meds: Active Medications Acetaminophen (Tylenol) 650 mg PO Q4H PRN PRN Reason: Pain MILD(1-3)/Fever >100.5/OLMSTEAD Albuterol (Proventil) 2.5 mg IH Q3HRT PRN PRN Reason: Shortness Of Breath Amlodipine Besylate (Amlodipine) 10 mg PO DAILY [facility] Last Admin: 11/24/19 09:25 Dose: 10 mg Documented by: Azithromycin (Zithromax) 500 mg PO QDAY [facility] Stop: 11/28/19 14:29 Last Admin: 11/24/19 09:24 Dose: 500 mg Documented by: Enoxaparin Sodium (Enoxaparin) 40 mg SUB-Q QDAY@2200 [facility] Last Admin: 11/23/19 21:06 Dose: 40 mg Documented by: Famotidine (Pepcid) 20 mg IV BID [facility] Last Admin: 11/24/19 09:25 Dose: 20 mg Documented by: Hydromorphone HCl (Dilaudid) 0.5 mg IV Q3H PRN PRN Reason: Pain , Severe (7-10) Ceftriaxone Sodium (Rocephin/Ns 2 Gm/100 Ml) 2 gm in 100 mls @ 200 mls/hr IV Q24HR [facility]; Protocol Last Admin: 11/23/19 10:03 Dose: 200 mls/hr Documented by: Lisinopril (Zestril) 40 mg PO QDAY [facility] Last Admin: 11/24/19 09:24 Dose: 40 mg Documented by: Melatonin (Melatonin) 5 mg PO QHS PRN PRN Reason: Sleep Last Admin: 11/23/19 23:04 Dose: 5 mg Documented by: Metoclopramide HCl (Reglan) 10 mg IV Q6H PRN PRN Reason: Nausea And Vomiting Ondansetron HCl (Zofran) 4 mg IV Q8H PRN PRN Reason: Nausea And Vomiting Oxycodone/Acetaminophen (Percocet 5/325) 1 tab PO Q6H PRN PRN Reason: Pain, Moderate (4-6) Last Admin: 11/23/19 00:45 Dose: 1 tab Documented by: Sodium Chloride (Sodium Chloride Flush Syringe 10 Ml) 10 ml IV BID [facility] Last Admin: 11/24/19 09:25 Dose: 10 ml Documented by: Sodium Chloride (Sodium Chloride Flush Syringe 10 Ml) 10 ml IV PRN PRN PRN Reason: LINE FLUSH Triamterene/HCTZ (Maxzide-25) 1 each PO QAM [facility] Last Admin: 11/24/19 09:24 Dose: 1 each Documented by: Valacyclovir HCl (Valtrex) 500 mg PO DAILY [facility] Last Admin: 11/24/19 09:25 Dose: 500 mg Documented by: Zinc Sulfate (Zinc Sulfate) 220 mg PO DAILY [facility] Last Admin: 11/24/19 09:24 Dose: 220 mg Documented by: Physical Examination - Physical Exam Narrative exam: Exam limited given PPE conservation - Constitutional Vitals: Vital Signs Temp Pulse Resp BP Pulse Ox 98.2 F 100 H 22 124/80 97 11/24/19 12:15 11/24/19 12:15 11/24/19 12:15 11/24/19 12:15 11/24/19 12:15 Temperature -Last 24 Hours Temperature 98.2 F Temperature 98.4 F Temperature 98.1 F Temperature 98.1 F Results - Labs CBC & Chem 7: 11/24/19 04:22 11/24/19 04:22 Labs: Abnormal lab results 11/24/19 Range/Units 04:22 MCV 96 H (84-94) fl MCH 33 H (28-32) pg MCHC 35 H (32-34) % RDW 12.6 L (13.2-15.2) % [place] % (Auto) 10.6 H (0.0-7.3) % Assessment and Plan Cultures: Blood culture no growth today Assessment: 59 y/o male with history of hypertension, obesity admitted with 3- day history of generalized weakness, dizziness, cough and body aches associated with shortness of breath: #Severe sepsis: Present on admission with fever, tachycardia, hypoxemia, neutropenia, elevated creatinine; likely secondary to COVID-19 infection. #COVID-19 pneumonia: Noted hypoxia down to 83%. However now on room air. Inflammatory markers are all normal except LDH which is mildly elevated - D- dimer 146. Ferritin 346. LDH 220. CRP 0.6. This is likely viremic phase +/- early cytokine release syndrome. #URIAH: Likely secondary to COVID infection #Transient hypoxia: Now resolved, on room air Recommendations: Exercise pulse oximeter - O2 sats after 6 minutes walk test inside room, document in chart start Solu-Medrol 40 mg IV twice daily due to transient hypoxia No indication for remdesivir given lack of sustained hypoxemia No indication for Tocilizumab given normal ferritin Stop ceftriaxone and azithromycin, procalcitonin is normal Daily inflammatory markers Will follow Tara Jacobs MD Infectious Diseases [place] [facility], [place], [facility] M [phone] O [phone]
[2019-11-24] MEDS: BICTEGRAV/EMTRICIT/TENOFOV ALA (NF) TAB PO SCH (15:57)
[2019-11-24] MEDS: ENOXAPARIN 40 MG/0.4 ML INJ SUB-Q SCH (21:28)
[2019-11-24] MEDS: MELATONIN 5 MG TAB PO PRN (21:56)
[2019-11-25] MEDS: LISINOPRIL 40 MG TAB PO SCH (10:48)
[2019-11-25] MEDS: valACYclovir 500 MG TAB PO SCH (10:48)
[2019-11-25] MEDS: amLODIPine 10 MG TAB PO SCH (10:48)
[2019-11-25] MEDS: ZINC SULFATE 220 MG CAP PO SCH (10:48)
[2019-11-25] MEDS: BICTEGRAV/EMTRICIT/TENOFOV ALA (NF) TAB PO SCH (10:49)
[2019-11-25] MEDS: TRIAMTER/HCTZ 37.5-25 MG TAB PO SCH (10:49)
[2019-11-25] MEDS: FAMOTIDINE 20 MG TAB PO SCH ×2 (11:02→21:45)
--- NOTE | 2019-11-25 18:59 | Progress Note ---
Assessment and Plan Cultures: Blood culture no growth today Assessment: 59 y/o male with history of hypertension, obesity admitted with 2- week history of generalized weakness, dizziness, cough and body aches associated with shortness of breath: #Severe sepsis: Present on admission with fever, tachycardia, hypoxemia, neutropenia, elevated creatinine; likely secondary to COVID-19 infection. #COVID-19 pneumonia: Noted initial hypoxia down to 83%. However remains on room air. Inflammatory markers are all normal except LDH which is mildly elevated - D-dimer 146. Ferritin 346. LDH 220. CRP 0.6. This is likely viremic phase +/- early cytokine release syndrome. #URIAH: Likely secondary to COVID infection #Transient hypoxia: Now resolved, on room air #HIV infection: on biktarvy sees DR Escamilla AIDLuisana, VL undetectable. unknown CD4. Recommendations: Exercise pulse oximeter - O2 sats after 6 minutes walk test inside room, document in chart , If >94% ok to d/c No indication for remdesivir given lack of sustained hypoxemia No indication for Tocilizumab given normal ferritin Daily inflammatory markers - ordered today If repeat markers and exercise O2 are ok, then ok to d/c home. F/u with Dr Escamilla in 2-3 weeks, call first to determine ID office requirement for COVID patients. Will follow Tara Jacobs MD Infectious Diseases [place] [facility] M [phone] O [phone] Subjective Date of service: 11/25/19 Principal diagnosis: COVID Interval history: Feels great no cough no SOB no GOMEZ no fever sat>96% on room air Objective - Exam Narrative Exam: Exam limited given PPE conservation - Constitutional Vitals: Vital Signs Temp Pulse Resp BP Pulse Ox 98.5 F 107 H 20 114/79 96 11/25/19 16:39 11/25/19 16:39 11/25/19 16:39 11/25/19 16:39 11/25/19 16:39 Temperature -Last 24 Hours Temperature 98.5 F Temperature 98.4 F Temperature 99.3 F Temperature 98.7 F - Labs CBC & Chem 7: 11/24/19 04:22 11/24/19 04:22
--- NOTE | 2019-11-25 20:04 | Progress Note ---
Assessment and Plan Assessment and plan: Sepsis. Patient meets criteria given the tachycardia, leukopenia and diagnosis of pneumonia. Will continue sepsis pathway. COVID-19 pneumonia. Patient reportedly tested positive prior to admission. In flammatory markers are not elevated with d-dimer 146, ferritin 346, CRP 0.6 and LDH 220. However, patient with desaturation in the 80s. Check exercise pulse oximetry. ID evaluation noted and appreciated Inflammatory markers repeated Acute hypoxic respiratory failure. Etiology secondary to above. Continue O2 and BiPAP as clinically indicated. Leukopenia. Etiology secondary to COVID-19. Follow-up CBC. Hypertension. Continue home antihypertensive medications. 11/24/2019. Inflammatory markers were not elevated on admission. We will continue to trend inflammatory markers. ID consultation. Patient currently experiencing no hypoxia. 11/25/19; repeat inflammatory markers requested, patient feels slightly better Continue current management, follow resting and ambulatory O2 sats Plan of care reviewed with the patient and his nurse Possible discharge in 1 to 2 days if stable ID evaluation and recommendations noted and appreciated History Interval history: Patient seen and examined at the bedside today afternoon Patient's chart and medications reviewed Isolation precautions, PPE protocols followed Patient feels slightly better Vital signs reviewed Hospitalist Physical - Constitutional Vitals: Temp Pulse Resp BP Pulse Ox 98.5 F 107 H 20 114/79 96 11/25/19 16:39 11/25/19 16:39 11/25/19 16:39 11/25/19 16:39 11/25/19 16:39 General appearance: Present: no acute distress, well-nourished - EENT Eyes: Present: PERRL, EOM intact - Neck Neck: Present: supple, normal ROM - Respiratory Respiratory effort: normal Respiratory: bilateral: diminished, rhonchi, negative: rales, wheezing - Cardiovascular Rhythm: regular Heart Sounds: Present: S1 & S2 - Extremities Extremities: no ischemia, No edema - Abdominal General gastrointestinal: soft, non-tender, non-distended, normal bowel sounds - Integumentary Integumentary: Present: clear, warm - Psychiatric Psychiatric: appropriate mood/affect, cooperative - Neurologic Neurologic: CNII-XII intact, moves all extremities Results - Labs CBC & Chem 7: 11/24/19 04:22 11/24/19 04:22 Labs: Laboratory Last Values WBC 4.7 K/mm3 (4.5-11.0) 11/24/19 04:22 RBC 4.23 M/mm3 (3.65-5.03) 11/24/19 04:22 Hgb 14.2 gm/dl (11.8-15.2) 11/24/19 04:22 Hct 40.5 % (35.5-45.6) 11/24/19 04:22 MCV 96 fl (84-94) H 11/24/19 04:22 MCH 33 pg (28-32) H 11/24/19 04:22 MCHC 35 % (32-34) H 11/24/19 04:22 RDW 12.6 % (13.2-15.2) L 11/24/19 04:22 Plt Count 181 K/mm3 (140-440) 11/24/19 04:22 Lymph % (Auto) 26.4 % (13.4-35.0) 11/24/19 04:22 [place] % (Auto) 10.6 % (0.0-7.3) H 11/24/19 04:22 Eos % (Auto) 0.2 % (0.0-4.3) 11/24/19 04:22 Baso % (Auto) 0.4 % (0.0-1.8) 11/24/19 04:22 Lymph # 1.2 K/mm3 (1.2-5.4) 11/24/19 04:22 [place] # 0.5 K/mm3 (0.0-0.8) 11/24/19 04:22 Eos # 0.0 K/mm3 (0.0-0.4) 11/24/19 04:22 Baso # 0.0 K/mm3 (0.0-0.1) 11/24/19 04:22 Add Manual Diff Complete 11/23/19 06:12 Total Counted 100 11/23/19 06:12 Seg Neutrophils % 62.4 % (40.0-70.0) 11/24/19 04:22 Seg Neuts % (Manual) 52.0 % (40.0-70.0) 11/23/19 06:12 Band Neutrophils % 0 % 11/23/19 06:12 Lymphocytes % (Manual) 27.0 % (13.4-35.0) 11/23/19 06:12 Reactive Lymphs % (Man) 2.0 % 11/23/19 06:12 Monocytes % (Manual) 19.0 % (0.0-7.3) H 11/23/19 06:12 Eosinophils % (Manual) 0 % (0.0-4.3) 11/23/19 06:12 Basophils % (Manual) 0 % (0.0-1.8) 11/23/19 06:12 Metamyelocytes % 0 % 11/23/19 06:12 Myelocytes % 0 % 11/23/19 06:12 Promyelocytes % 0 % 11/23/19 06:12 Blast Cells % 0 % 11/23/19 06:12 Nucleated RBC % Not Reportable 11/23/19 06:12 Seg Neutrophils # 2.9 K/mm3 (1.8-7.7) 11/24/19 04:22 Seg Neutrophils # Man 1.0 K/mm3 (1.8-7.7) L 11/23/19 06:12 Band Neutrophils # 0.0 K/mm3 11/23/19 06:12 Lymphocytes # (Manual) 0.5 K/mm3 (1.2-5.4) L 11/23/19 06:12 Abs React Lymphs (Man) 0.0 K/mm3 11/23/19 06:12 Monocytes # (Manual) 0.4 K/mm3 (0.0-0.8) 11/23/19 06:12 Eosinophils # (Manual) 0.0 K/mm3 (0.0-0.4) 11/23/19 06:12 Basophils # (Manual) 0.0 K/mm3 (0.0-0.1) 11/23/19 06:12 Metamyelocytes # 0.0 K/mm3 11/23/19 06:12 Myelocytes # 0.0 K/mm3 11/23/19 06:12 Promyelocytes # 0.0 K/mm3 11/23/19 06:12 Blast Cells # 0.0 K/mm3 11/23/19 06:12 WBC Morphology Not Reportable 11/23/19 06:12 WBC Morphology TNR 11/23/19 06:12 Hypersegmented Neuts Not Reportable 11/23/19 06:12 Hyposegmented Neuts Not Reportable 11/23/19 06:12 Hypogranular Neuts Not Reportable 11/23/19 06:12 Smudge Cells Not Reportable 11/23/19 06:12 Toxic Granulation Not Reportable 11/23/19 06:12 Toxic Vacuolation Not Reportable 11/23/19 06:12 Dohle Bodies Not Reportable 11/23/19 06:12 Pelger-Huet Anomaly Not Reportable 11/23/19 06:12 Jerrod Rods Not Reportable 11/23/19 06:12 Platelet Estimate Consistent w auto 11/23/19 06:12 Clumped Platelets Not Reportable 11/23/19 06:12 Plt Clumps, EDTA Not Reportable 11/23/19 06:12 Large Platelets Not Reportable 11/23/19 06:12 Giant Platelets Few 11/23/19 06:12 Platelet Satelliting Not Reportable 11/23/19 06:12 Plt Morphology Comment Not Reportable 11/23/19 06:12 RBC Morphology Normal 11/23/19 06:12 Dimorphic RBCs Not Reportable 11/23/19 06:12 Polychromasia Not Reportable 11/23/19 06:12 Hypochromasia Not Reportable 11/23/19 06:12 Poikilocytosis Not Reportable 11/23/19 06:12 Anisocytosis Not Reportable 11/23/19 06:12 Microcytosis Not Reportable 11/23/19 06:12 Macrocytosis Not Reportable 11/23/19 06:12 Spherocytes Not Reportable 11/23/19 06:12 Pappenheimer Bodies Not Reportable 11/23/19 06:12 Sickle Cells Not Reportable 11/23/19 06:12 Target Cells Not Reportable 11/23/19 06:12 Tear Drop Cells Not Reportable 11/23/19 06:12 Ovalocytes Not Reportable 11/23/19 06:12 Helmet Cells Not Reportable 11/23/19 06:12 [place] Bodies Not Reportable 11/23/19 06:12 [place] Rings Not Reportable 11/23/19 06:12 [place] Cells Not Reportable 11/23/19 06:12 Bite Cells Not Reportable 11/23/19 06:12 Crenated Cell Not Reportable 11/23/19 06:12 Elliptocytes Not Reportable 11/23/19 06:12 Acanthocytes (Spur) Not Reportable 11/23/19 06:12 Rouleaux Not Reportable 11/23/19 06:12 Hemoglobin C Crystals Not Reportable 11/23/19 06:12 Schistocytes Not Reportable 11/23/19 06:12 Malaria parasites Not Reportable 11/23/19 06:12 Alvaro Bodies Not Reportable 11/23/19 06:12 Hem Pathologist Commnt No 11/23/19 06:12 D-Dimer 146.50 ng/mlDDU (0-234) 11/22/19 11:34 Sodium 138 mmol/L (137-145) 11/24/19 04:22 Potassium 3.9 mmol/L (3.6-5.0) 11/24/19 04:22 Chloride 100.5 mmol/L (98-107) 11/24/19 04:22 Carbon Dioxide 25 mmol/L (22-30) 11/24/19 04:22 Anion Gap 16 mmol/L 11/24/19 04:22 BUN 14 mg/dL (9-20) 11/24/19 04:22 Creatinine 1.2 mg/dL (0.8-1.5) 11/24/19 04:22 Estimated GFR > 60 ml/min 11/24/19 04:22 BUN/Creatinine Ratio 12 % 11/24/19 04:22 Glucose 96 mg/dL (75-100) 11/24/19 04:22 Hemoglobin A1c 4.7 % (4-6) 11/23/19 06:12 Lactic Acid 1.30 mmol/L (0.7-2.0) 11/22/19 17:39 Calcium 8.6 mg/dL (8.4-10.2) 11/24/19 04:22 Ferritin 346.9 ng/mL (13.0-400.0) 11/22/19 11:34 Total Bilirubin 0.90 mg/dL (0.1-1.2) 11/23/19 06:12 AST 17 units/L (5-40) 11/23/19 06:12 ALT 26 units/L (7-56) 11/23/19 06:12 Alkaline Phosphatase 51 units/L (35-129) 11/23/19 06:12 Lactate Dehydrogenase 220 units/L (91-180) H 11/22/19 11:34 C-Reactive Protein 0.60 mg/dL (0.00-1.30) 11/22/19 11:34 Total Protein 6.6 g/dL (6.3-8.2) 11/23/19 06:12 Albumin 3.9 g/dL (3.9-5) 11/23/19 06:12 Albumin/Globulin Ratio 1.4 % 11/23/19 06:12 Procalcitonin < 0.05 ng/mL (<0.15) 11/22/19 11:34 Coronavirus (PCR) Positive (Negative) A 11/23/19 Unknown Microbiology: Microbiology 11/22/19 13:19 Peripheral/Venous Blood Culture - Preliminary NO GROWTH AFTER 72 HOURS 11/22/19 13:19 Peripheral/Venous Blood Culture - Preliminary NO GROWTH AFTER 72 HOURS Pacheco/IV: Voiding Method Toilet IV Catheter Type [Right Hand] INT / Saline Lock Active Medications - Current Medications Current Medications: Generic Name Dose Route Start Last Admin Trade Name Freq PRN Reason Stop Dose Admin Acetaminophen 650 mg 11/22/19 21:15 Tylenol PO Q4H PRN Pain MILD(1-3)/Fever >100.5/OLMSTEAD Albuterol 2.5 mg 11/22/19 22:48 Proventil IH Q3HRT PRN Shortness Of Breath Amlodipine Besylate 10 mg 11/22/19 22:00 11/25/19 10:48 Amlodipine PO 10 mg DAILY JW Administration Enoxaparin Sodium 40 mg 11/22/19 22:00 11/24/19 21:28 Enoxaparin SUB-Q 40 mg QDAY@2200 JW Administration Famotidine 20 mg 11/25/19 10:00 11/25/19 11:02 Pepcid PO 20 mg BID JW Administration Hydromorphone HCl 0.5 mg 11/22/19 21:16 Dilaudid IV Q3H PRN Pain , Severe (7-10) Lisinopril 40 mg 11/22/19 22:00 11/25/19 10:48 Zestril PO 40 mg QDAY JW Administration Melatonin 5 mg 11/23/19 21:25 11/24/19 21:56 Melatonin PO 5 mg QHS PRN Administration Sleep Metoclopramide HCl 10 mg 11/22/19 21:26 Reglan IV Q6H PRN Nausea And Vomiting Ondansetron HCl 4 mg 11/22/19 21:15 Zofran IV Q8H PRN Nausea And Vomiting Oxycodone/Acetaminophen 1 tab 11/22/19 21:16 11/23/19 00:45 Percocet 5/325 PO 1 tab Q6H PRN Administration Pain, Moderate (4-6) Sodium Chloride 10 ml 11/22/19 22:00 11/25/19 11:02 Sodium Chloride Flush Syringe 10 Ml IV 10 ml BID JW Administration Sodium Chloride 10 ml 11/22/19 21:15 Sodium Chloride Flush Syringe 10 Ml IV PRN PRN LINE FLUSH Triamterene/HCTZ 1 each 11/22/19 22:00 11/25/19 10:49 Maxzide-25 PO 1 each QAM JW Administration Valacyclovir HCl 500 mg 11/23/19 10:00 11/25/19 10:48 Valtrex PO 500 mg DAILY JW Administration Zinc Sulfate 220 mg 11/23/19 10:00 11/25/19 10:48 Zinc Sulfate PO 220 mg DAILY JW Administration
[2019-11-25 20:17] LABS: C-Reactive Protein 1.9 mg/dL (0.00-1.30)
[2019-11-25] MEDS: ENOXAPARIN 40 MG/0.4 ML INJ SUB-Q SCH (21:45)
[2019-11-25] MEDS: MELATONIN 5 MG TAB PO PRN (21:45)
[2019-11-26] MEDS: amLODIPine 10 MG TAB PO SCH (10:30)
[2019-11-26] MEDS: valACYclovir 500 MG TAB PO SCH (10:30)
[2019-11-26] MEDS: ZINC SULFATE 220 MG CAP PO SCH (10:30)
[2019-11-26] MEDS: LISINOPRIL 40 MG TAB PO SCH (10:30)
[2019-11-26] MEDS: FAMOTIDINE 20 MG TAB PO SCH ×2 (10:30→21:39)
[2019-11-26] MEDS: TRIAMTER/HCTZ 37.5-25 MG TAB PO SCH (10:31)
[2019-11-26] MEDS: BICTEGRAV/EMTRICIT/TENOFOV ALA (NF) TAB PO SCH (10:31)
--- NOTE | 2019-11-26 13:50 | Progress Note ---
Assessment and Plan Cultures: Blood culture no growth today Assessment: 59 y/o male with history of hypertension, obesity admitted with 2- week history of generalized weakness, dizziness, cough and body aches associated with shortness of breath: #Severe sepsis: Present on admission with fever, tachycardia, hypoxemia, neutropenia, elevated creatinine; likely secondary to COVID-19 infection. #COVID-19 pneumonia: Noted initial hypoxia down to 83%. However remains on room air. Inflammatory markers are all normal except LDH which is mildly elevated - D-dimer 146. Ferritin 346. LDH 220. CRP 0.6. This is likely viremic phase +/- early cytokine release syndrome. #URIAH: Likely secondary to COVID infection #Transient hypoxia: Now resolved, on room air, room air pulse oximetry at rest of 96%, room air pulse oximetry of 89% with activity. #HIV infection: on biktarvy sees DR Francine NASH, VL undetectable. unknown CD4. Recommendations: Start solumedrol 40 mg IV q 8 hour Repeat tomorrow - Exercise pulse oximeter - O2 sats after 6 minutes walk test inside room, document in chart , If >94% ok to d/c No indication for remdesivir given lack of sustained hypoxemia Repeat markers today No indication for Tocilizumab given normal ferritin Will follow Tara Jacobs MD Infectious Diseases [place] [facility] [phone] O [phone] Subjective Date of service: 11/26/19 Principal diagnosis: COVID Objective - Constitutional Vitals: Vital Signs Temp Pulse Resp BP Pulse Ox 99.4 F 114 H 20 105/72 96 11/26/19 11:54 11/26/19 11:54 11/26/19 11:54 11/26/19 11:54 11/26/19 11:54 Temperature -Last 24 Hours Temperature 99.4 F Temperature 100.1 F Temperature 100.0 F Temperature 98.5 F - Labs CBC & Chem 7: 11/24/19 04:22 11/24/19 04:22 Labs: Abnormal lab results 11/25/19 Range/Units 19:45 C-Reactive Protein 1.90 H (0.00-1.30) mg/dL
[2019-11-26] MEDS: methylPREDNISolone Sod Succinate 40 MG/1 ML INJ IV SCH ×2 (15:08→21:38)
--- NOTE | 2019-11-26 21:37 | Progress Note ---
Assessment and Plan Assessment and plan: Sepsis. Patient meets criteria given the tachycardia, leukopenia and diagnosis of pneumonia. Will continue sepsis pathway. COVID-19 pneumonia. Patient reportedly tested positive prior to admission. In flammatory markers are not elevated with d-dimer 146, ferritin 346, CRP 0.6 and LDH 220. However, patient with desaturation in the 80s. Check exercise pulse oximetry. ID evaluation noted and appreciated Inflammatory markers repeated Acute hypoxic respiratory failure. Etiology secondary to above. Continue O2 and BiPAP as clinically indicated. Leukopenia. Etiology secondary to COVID-19. Follow-up CBC. Hypertension. Continue home antihypertensive medications. 11/24/2019. Inflammatory markers were not elevated on admission. We will continue to trend inflammatory markers. ID consultation. Patient currently experiencing no hypoxia. 11/25/19; repeat inflammatory markers requested, patient feels slightly better Continue current management, follow resting and ambulatory O2 sats 11/26/19; recheck exercise room air O2 sats tomorrow Possible discharge if stable Plan of care reviewed with the patient and his nurse Possible discharge in 1 to 2 days if stable ID evaluation and recommendations noted and appreciated History Interval history: Patient seen and examined at the bedside medical records reviewed Patient feels slightly better Vital signs noted Hospitalist Physical - Constitutional Vitals: Temp Pulse Resp BP Pulse Ox 100.1 F H 104 H 20 117/77 96 11/26/19 16:41 11/26/19 16:41 11/26/19 16:41 11/26/19 16:41 11/26/19 16:41 General appearance: Present: no acute distress, well-nourished - EENT Eyes: Present: PERRL, EOM intact - Neck Neck: Present: supple, normal ROM - Respiratory Respiratory effort: normal Respiratory: bilateral: diminished, rhonchi, negative: rales, wheezing - Cardiovascular Rhythm: regular Heart Sounds: Present: S1 & S2 - Extremities Extremities: no ischemia, No edema - Abdominal General gastrointestinal: soft, non-tender, non-distended, normal bowel sounds - Integumentary Integumentary: Present: clear, warm - Psychiatric Psychiatric: appropriate mood/affect, cooperative - Neurologic Neurologic: CNII-XII intact, moves all extremities Results - Labs CBC & Chem 7: 11/24/19 04:22 11/24/19 04:22 Labs: Laboratory Last Values WBC 4.7 K/mm3 (4.5-11.0) 11/24/19 04:22 RBC 4.23 M/mm3 (3.65-5.03) 11/24/19 04:22 Hgb 14.2 gm/dl (11.8-15.2) 11/24/19 04:22 Hct 40.5 % (35.5-45.6) 11/24/19 04:22 MCV 96 fl (84-94) H 11/24/19 04:22 MCH 33 pg (28-32) H 11/24/19 04:22 MCHC 35 % (32-34) H 11/24/19 04:22 RDW 12.6 % (13.2-15.2) L 11/24/19 04:22 Plt Count 181 K/mm3 (140-440) 11/24/19 04:22 Lymph % (Auto) 26.4 % (13.4-35.0) 11/24/19 04:22 [place] % (Auto) 10.6 % (0.0-7.3) H 11/24/19 04:22 Eos % (Auto) 0.2 % (0.0-4.3) 11/24/19 04:22 Baso % (Auto) 0.4 % (0.0-1.8) 11/24/19 04:22 Lymph # 1.2 K/mm3 (1.2-5.4) 11/24/19 04:22 [place] # 0.5 K/mm3 (0.0-0.8) 11/24/19 04:22 Eos # 0.0 K/mm3 (0.0-0.4) 11/24/19 04:22 Baso # 0.0 K/mm3 (0.0-0.1) 11/24/19 04:22 Add Manual Diff Complete 11/23/19 06:12 Total Counted 100 11/23/19 06:12 Seg Neutrophils % 62.4 % (40.0-70.0) 11/24/19 04:22 Seg Neuts % (Manual) 52.0 % (40.0-70.0) 11/23/19 06:12 Band Neutrophils % 0 % 11/23/19 06:12 Lymphocytes % (Manual) 27.0 % (13.4-35.0) 11/23/19 06:12 Reactive Lymphs % (Man) 2.0 % 11/23/19 06:12 Monocytes % (Manual) 19.0 % (0.0-7.3) H 11/23/19 06:12 Eosinophils % (Manual) 0 % (0.0-4.3) 11/23/19 06:12 Basophils % (Manual) 0 % (0.0-1.8) 11/23/19 06:12 Metamyelocytes % 0 % 11/23/19 06:12 Myelocytes % 0 % 11/23/19 06:12 Promyelocytes % 0 % 11/23/19 06:12 Blast Cells % 0 % 11/23/19 06:12 Nucleated RBC % Not Reportable 11/23/19 06:12 Seg Neutrophils # 2.9 K/mm3 (1.8-7.7) 11/24/19 04:22 Seg Neutrophils # Man 1.0 K/mm3 (1.8-7.7) L 11/23/19 06:12 Band Neutrophils # 0.0 K/mm3 11/23/19 06:12 Lymphocytes # (Manual) 0.5 K/mm3 (1.2-5.4) L 11/23/19 06:12 Abs React Lymphs (Man) 0.0 K/mm3 11/23/19 06:12 Monocytes # (Manual) 0.4 K/mm3 (0.0-0.8) 11/23/19 06:12 Eosinophils # (Manual) 0.0 K/mm3 (0.0-0.4) 11/23/19 06:12 Basophils # (Manual) 0.0 K/mm3 (0.0-0.1) 11/23/19 06:12 Metamyelocytes # 0.0 K/mm3 11/23/19 06:12 Myelocytes # 0.0 K/mm3 11/23/19 06:12 Promyelocytes # 0.0 K/mm3 11/23/19 06:12 Blast Cells # 0.0 K/mm3 11/23/19 06:12 WBC Morphology Not Reportable 11/23/19 06:12 WBC Morphology TNR 11/23/19 06:12 Hypersegmented Neuts Not Reportable 11/23/19 06:12 Hyposegmented Neuts Not Reportable 11/23/19 06:12 Hypogranular Neuts Not Reportable 11/23/19 06:12 Smudge Cells Not Reportable 11/23/19 06:12 Toxic Granulation Not Reportable 11/23/19 06:12 Toxic Vacuolation Not Reportable 11/23/19 06:12 Dohle Bodies Not Reportable 11/23/19 06:12 Pelger-Huet Anomaly Not Reportable 11/23/19 06:12 Jerrod Rods Not Reportable 11/23/19 06:12 Platelet Estimate Consistent w auto 11/23/19 06:12 Clumped Platelets Not Reportable 11/23/19 06:12 Plt Clumps, EDTA Not Reportable 11/23/19 06:12 Large Platelets Not Reportable 11/23/19 06:12 Giant Platelets Few 11/23/19 06:12 Platelet Satelliting Not Reportable 11/23/19 06:12 Plt Morphology Comment Not Reportable 11/23/19 06:12 RBC Morphology Normal 11/23/19 06:12 Dimorphic RBCs Not Reportable 11/23/19 06:12 Polychromasia Not Reportable 11/23/19 06:12 Hypochromasia Not Reportable 11/23/19 06:12 Poikilocytosis Not Reportable 11/23/19 06:12 Anisocytosis Not Reportable 11/23/19 06:12 Microcytosis Not Reportable 11/23/19 06:12 Macrocytosis Not Reportable 11/23/19 06:12 Spherocytes Not Reportable 11/23/19 06:12 Pappenheimer Bodies Not Reportable 11/23/19 06:12 Sickle Cells Not Reportable 11/23/19 06:12 Target Cells Not Reportable 11/23/19 06:12 Tear Drop Cells Not Reportable 11/23/19 06:12 Ovalocytes Not Reportable 11/23/19 06:12 Helmet Cells Not Reportable 11/23/19 06:12 [place] Bodies Not Reportable 11/23/19 06:12 [place] Rings Not Reportable 11/23/19 06:12 [place] Cells Not Reportable 11/23/19 06:12 Bite Cells Not Reportable 11/23/19 06:12 Crenated Cell Not Reportable 11/23/19 06:12 Elliptocytes Not Reportable 11/23/19 06:12 Acanthocytes (Spur) Not Reportable 11/23/19 06:12 Rouleaux Not Reportable 11/23/19 06:12 Hemoglobin C Crystals Not Reportable 11/23/19 06:12 Schistocytes Not Reportable 11/23/19 06:12 Malaria parasites Not Reportable 11/23/19 06:12 Alvaro Bodies Not Reportable 11/23/19 06:12 Hem Pathologist Commnt No 11/23/19 06:12 D-Dimer 135.00 ng/mlDDU (0-234) 11/25/19 19:45 Sodium 138 mmol/L (137-145) 11/24/19 04:22 Potassium 3.9 mmol/L (3.6-5.0) 11/24/19 04:22 Chloride 100.5 mmol/L (98-107) 11/24/19 04:22 Carbon Dioxide 25 mmol/L (22-30) 11/24/19 04:22 Anion Gap 16 mmol/L 11/24/19 04:22 BUN 14 mg/dL (9-20) 11/24/19 04:22 Creatinine 1.2 mg/dL (0.8-1.5) 11/24/19 04:22 Estimated GFR > 60 ml/min 11/24/19 04:22 BUN/Creatinine Ratio 12 % 11/24/19 04:22 Glucose 96 mg/dL (75-100) 11/24/19 04:22 Hemoglobin A1c 4.7 % (4-6) 11/23/19 06:12 Lactic Acid 1.30 mmol/L (0.7-2.0) 11/22/19 17:39 Calcium 8.6 mg/dL (8.4-10.2) 11/24/19 04:22 Ferritin 378.4 ng/mL (13.0-400.0) 11/25/19 19:45 Total Bilirubin 0.90 mg/dL (0.1-1.2) 11/23/19 06:12 AST 17 units/L (5-40) 11/23/19 06:12 ALT 26 units/L (7-56) 11/23/19 06:12 Alkaline Phosphatase 51 units/L (35-129) 11/23/19 06:12 Lactate Dehydrogenase 173 units/L (91-180) 11/25/19 19:45 C-Reactive Protein 1.90 mg/dL (0.00-1.30) H 11/25/19 19:45 Total Protein 6.6 g/dL (6.3-8.2) 11/23/19 06:12 Albumin 3.9 g/dL (3.9-5) 11/23/19 06:12 Albumin/Globulin Ratio 1.4 % 11/23/19 06:12 Procalcitonin < 0.05 ng/mL (<0.15) 11/22/19 11:34 Coronavirus (PCR) Positive (Negative) A 11/23/19 Unknown Microbiology: Microbiology 11/22/19 13:19 Peripheral/Venous Blood Culture - Preliminary NO GROWTH AFTER 4 DAYS 11/22/19 13:19 Peripheral/Venous Blood Culture - Preliminary NO GROWTH AFTER 4 DAYS Pacheco/IV: Voiding Method Toilet IV Catheter Type [Right Hand] INT / Saline Lock Active Medications - Current Medications Current Medications: Generic Name Dose Route Start Last Admin Trade Name Freq PRN Reason Stop Dose Admin Acetaminophen 650 mg 11/22/19 21:15 Tylenol PO Q4H PRN Pain MILD(1-3)/Fever >100.5/OLMSTEAD Albuterol 2.5 mg 11/22/19 22:48 Proventil IH Q3HRT PRN Shortness Of Breath Amlodipine Besylate 10 mg 11/22/19 22:00 11/26/19 10:30 Amlodipine PO 10 mg DAILY JW Administration Enoxaparin Sodium 40 mg 11/22/19 22:00 11/25/19 21:45 Enoxaparin SUB-Q 40 mg QDAY@2200 JW Administration Famotidine 20 mg 11/25/19 10:00 11/26/19 10:30 Pepcid PO 20 mg BID JW Administration Hydromorphone HCl 0.5 mg 11/22/19 21:16 Dilaudid IV Q3H PRN Pain , Severe (7-10) Lisinopril 40 mg 11/22/19 22:00 11/26/19 10:30 Zestril PO 40 mg QDAY JW Administration Melatonin 5 mg 11/23/19 21:25 11/25/19 21:45 Melatonin PO 5 mg QHS PRN Administration Sleep Methylprednisolone Sodium Succinate 40 mg 11/26/19 14:00 11/26/19 15:08 Solu-Medrol IV 40 mg Q8HR JW Administration Metoclopramide HCl 10 mg 11/22/19 21:26 Reglan IV Q6H PRN Nausea And Vomiting Ondansetron HCl 4 mg 11/22/19 21:15 Zofran IV Q8H PRN Nausea And Vomiting Oxycodone/Acetaminophen 1 tab 11/22/19 21:16 11/23/19 00:45 Percocet 5/325 PO 1 tab Q6H PRN Administration Pain, Moderate (4-6) Sodium Chloride 10 ml 11/22/19 22:00 11/26/19 10:30 Sodium Chloride Flush Syringe 10 Ml IV 10 ml BID JW Administration Sodium Chloride 10 ml 11/22/19 21:15 Sodium Chloride Flush Syringe 10 Ml IV PRN PRN LINE FLUSH Triamterene/HCTZ 1 each 11/22/19 22:00 11/26/19 10:31 Maxzide-25 PO 1 each QAM JW Administration Valacyclovir HCl 500 mg 11/23/19 10:00 11/26/19 10:30 Valtrex PO 500 mg DAILY JW Administration Zinc Sulfate 220 mg 11/23/19 10:00 11/26/19 10:30 Zinc Sulfate PO 220 mg DAILY JW Administration
[2019-11-26] MEDS: ENOXAPARIN 40 MG/0.4 ML INJ SUB-Q SCH (21:39)
[2019-11-26] MEDS: MELATONIN 5 MG TAB PO PRN (23:45)
[2019-11-27] MEDS: methylPREDNISolone Sod Succinate 40 MG/1 ML INJ IV SCH ×2 (05:27→13:42)
--- NOTE | 2019-11-27 12:01 | Progress Note ---
Assessment and Plan Cultures: Blood culture no growth today Assessment: 59 y/o male with history of hypertension, obesity admitted with 2- week history of generalized weakness, dizziness, cough and body aches associated with shortness of breath: #Severe sepsis: Present on admission with fever, tachycardia, hypoxemia, neutropenia, elevated creatinine; likely secondary to COVID-19 infection. #COVID-19 pneumonia: Noted initial hypoxia down to 83%. However remains on room air. Inflammatory markers are all normal except LDH which is mildly elevated - D-dimer 146. Ferritin 346. LDH 220. CRP 0.6. This is likely viremic phase +/- early cytokine release syndrome. #URIAH: Likely secondary to COVID infection #Transient hypoxia: Now resolved, on room air, room air pulse oximetry at rest of 96%, room air pulse oximetry of 89% with activity yesterday. #HIV infection: on biktarvy sees DR Francine NASH, VL undetectable. unknown CD4. Recommendations: continue solumedrol 40 mg IV q 8 hour day 2 Repeat today - Exercise pulse oximeter - O2 sats after 6 minutes walk test inside room, document in chart , If >94% ok to d/c on dexamethasone 6 mg po qday x 10 days No indication for remdesivir given lack of sustained hypoxemia Will follow Tara Jacobs MD Infectious Diseases [employer] [facility] M [phone] O [phone] Subjective Date of service: 11/27/19 Principal diagnosis: COVID Interval history: Feels better fever fever sat>96% on room air Objective - Exam Narrative Exam: Exam limited given PPE conservation - Constitutional Vitals: Vital Signs Temp Pulse Resp BP Pulse Ox 97.6 F 91 H 18 131/81 94 11/27/19 05:03 11/27/19 05:03 11/27/19 05:03 11/27/19 05:03 11/27/19 05:03 Temperature -Last 24 Hours Temperature 97.6 F Temperature 99.1 F Temperature 100.1 F - Labs CBC & Chem 7: 11/24/19 04:22 11/24/19 04:22
[2019-11-27] MEDS: valACYclovir 500 MG TAB PO SCH (12:30)
[2019-11-27] MEDS: amLODIPine 10 MG TAB PO SCH (12:30)
[2019-11-27] MEDS: FAMOTIDINE 20 MG TAB PO SCH (12:30)
[2019-11-27] MEDS: ZINC SULFATE 220 MG CAP PO SCH (12:30)
[2019-11-27] MEDS: LISINOPRIL 40 MG TAB PO SCH (12:30)
[2019-11-27] MEDS: BICTEGRAV/EMTRICIT/TENOFOV ALA (NF) TAB PO SCH (12:31)
[2019-11-27 13:20] VITALS: BP 138/76
[2019-11-27] MEDS: TRIAMTER/HCTZ 37.5-25 MG TAB PO SCH (13:42)
--- NOTE | 2019-11-27 17:03 | Discharge Summary ---
Providers - Providers Date of Admission: 11/22/19 13:13 Date of discharge: 11/27/19 Attending physician: ALYCE GARCIA 11/24/19 10:25 Consult to Physician [CONS] Routine Comment: Consulting Provider: CHRISTAL CISNEROS Physician Instructions: Reason For Exam: COVID Primary care physician: [facility] Hospitalization Condition: Stable Disposition: DC-01 TO HOME OR SELFCARE Time spent for discharge: 35 min Core Measure Documentation - Palliative Care Palliative Care/ Comfort Measures: Hospice Care - Core Measures Any of the following diagnoses?: none Exam - Constitutional Vitals: Temp Pulse Resp BP Pulse Ox 98.6 F 92 H 18 138/76 94 11/27/19 12:10 11/27/19 12:10 11/27/19 12:10 11/27/19 12:10 11/27/19 12:10 General appearance: Present: no acute distress, well-nourished - EENT Eyes: Present: PERRL, EOM intact - Neck Neck: Present: supple, normal ROM - Respiratory Respiratory effort: normal Respiratory: bilateral: diminished, negative: rales, rhonchi, wheezing - Cardiovascular Rhythm: regular Heart Sounds: Present: S1 & S2 - Extremities Extremities: no ischemia, No edema - Abdominal General gastrointestinal: Present: soft, non-tender, non-distended, normal bowel sounds - Integumentary Integumentary: Present: clear, warm - Musculoskeletal Musculoskeletal: strength equal bilaterally - Psychiatric Psychiatric: appropriate mood/affect, cooperative - Neurologic Neurologic: CNII-XII intact, moves all extremities Plan Activity: advance as tolerated Diet: regular Additional Instructions: Follow with primary care physician in 1 week. If you have worsening symptoms contact MD or go to emergency room. On Room Air o2 sat: Sitting - 98%; After 6 minute walk - 97%. DC home on Dexamethasone 6 mg po qday x 10 days. Advised to follow-up call with protocols of self quarantine, isolation, mask, handwashing and other instructions given to you. Follow up with: HÉCTOR ELIZALDE MD [Primary Care Provider] - 7 Days Prescriptions: Dexamethasone [Decadron] 6 mg PO DAILY #10 tablet
== END 2019-11-27 18:05 | disposition home or self-care (01) | DRG 871 ==
LOC: ED 10:52 → OBSVTOIN 13:13 → 3A 13:13
PROVIDERS: ADMIT Hospitalist; ATTEND Internal Medicine
DX: A41.89 Other specified sepsis (principal); U07.1 COVID-19; J96.01 Acute respiratory failure with hypoxia; J12.89 Other viral pneumonia; E87.1 Hypo-osmolality and hyponatremia; N17.9 Acute kidney failure, unspecified; R65.20 Severe sepsis without septic shock; I10 Essential (primary) hypertension; Z21 Asymptomatic human immunodeficiency virus [HIV] infection status
CPT/HCPCS: 36415; 71046; 80048; 80053; 82140; 82728; 83036; 83615; 84145; 85007; 85025; 85379; 86140; 87040; 93005; G0378; J0456; J0696; J1100; J1650; J2920; J7030; J7040; J7050; U0003-CS